=== PATIENT | female | born 1980 | race American Indian/Alaskan Native ===

== ENCOUNTER 2024-07-10 09:44 | Emergency (ER) | payer OTHER, SELFPAY ==
[2024-07-10 09:48] VITALS: BP 122/89
[2024-07-10 10:12] LABS: % Basophils 0.4 % (0-2); % Eosinophils 1.6 % (0-6); % Immature Granulocytes 0.1 % (0-0.5); % Lymphocytes 27.6 % (20.5-51.1); % Neutrophils 62.3 % (42.2-75.2); Absolute Eosinophils 0.1 10^3/uL (0-0.7); Absolute Lymphocytes 1.9 10^3/uL (1.2-3.4); Absolute Monocytes 0.6 10^3/uL (0.1-0.6); Absolute Neutrophils 4.3 10^3/uL (1.4-6.5); Hematocrit 39.3 % (37.0-47.0); Hemoglobin 13.4 g/dL (12.0-16.0); Mean Corp Hgb Conc. 34.1 g/dL (33.0-37.0); Mean Corpuscular Hgb 28.7 pg (27.0-31.0); Mean Corpuscular Volume 84.2 fL (81.0-99.0); Mean Platelet Volume 10.3 fL (7.4-10.4); Nucleated Red Blood Cells % 0 %; Platelet Count 249 10^3/uL (130-400); Red Blood Cell Count 4.67 10^6/uL (4.20-5.40); Red Cell Dist. Width 12.5 % (11.5-14.5); White Blood Cell Count 6.9 10^3/uL (4.8-10.8)
[2024-07-10 10:21] LABS: PT 13.2 Sec (11.4-14.6)
[2024-07-10 10:22] LABS: APTT 33.3 Sec (23.4-35.0)
[2024-07-10 10:33] LABS: ALT (SGPT) 20 U/L (0-35); AST (SGOT) 35 U/L (14-36); Albumin 4.6 g/dl (3.5-5.0); Alkaline Phosphatase 77 U/L (38-126); Blood Urea Nitrogen 11 mg/dl (7-17); Calcium 10.1 mg/dl (8.4-10.2); Carbon Dioxide 29 mmol/L (22-30); Chloride 101 mmol/L (98-107); Glucose 98 mg/dl (70-99); Potassium 4.4 mmol/L (3.5-5.1); Sodium 138 mmol/L (135-145); Total Bilirubin 0.8 mg/dl (0.2-1.3); Total Protein 7.4 g/dl (6.3-8.2); eGFR > 60.00
[2024-07-10 10:40] LABS: Troponin I < 0.012 ng/ml
[2024-07-10 11:05] VITALS: BP 123/73
[2024-07-10 11:07] VITALS: BMI 24.1
--- NOTE | 2024-07-10 11:41 | ED.GENMED ---
History of Present Illness
General
Chief Complaint: Chest Pain
Source: patient
Exam Limitations: none
Time Seen by Provider: 07/10/24 11:22
History of Present Illness
History of Present Illness:
See MDM
Past History
Past History
ED Past Medical History: None
ED Past Surgical History: None
Social History
Tobacco: Non-smoker
Alcohol: None
Phy Exam
Physical Exam
Physical Exam:
See MDM
Scores
Heart Score for Chest Pain Patients
STEMI patient?: No
History: Slightly or Non-Suspicious
ECG: Normal
Age: >45 - <65 years
Risk Factors: No Risk Factors
Troponin: </= Normal Limit
Heart Score for Chest Pain Patients: 1
Heart Score Risk: 2.5% MACE over next 6 weeks
PERC Rule Criteria
Age <50 years: Yes
HR <100 bpm: Yes
Room air oxygen sat >94%: Yes
History of DVT or PE: No
Recent trauma or surgery: No
Hemoptysis: No
Exogenous estrogen: No
Clinical signs suggestive of DVT: No
: No
Considered low risk for PE: Yes
PERC Score: 0
PE can be excluded by PERC: Yes
Course
Orders/Labs/Results
Orders:
Orders
07/10/24 09:46
Electrocardiogram (*1) Urgent
Reason for Study: Chest Pain
EKG- Treatment ONCE
Chest [CR Chest - 2 Views ] Urgent
Comment:
Reason For Exam: chest pain, SOB
07/10/24 09:55
Complete Blood Count/With Diff Urgent
Comprehensive Metabolic Panel Urgent
PT/INR [Prothrombin Time] Urgent
PTT Urgent
Troponin I Urgent
08/29/24 09:55
07/10/24 09:55
Vital Signs
Initial and Last Documented VS:
Initial Vital Signs
Temp Pulse Resp BP Pulse Ox
98.3 F 78 18 122/89 98
07/10/24 09:48 07/10/24 09:48 07/10/24 09:48 07/10/24 09:48 07/10/24 09:48
Last Documented Vital Signs
Temp Pulse Resp BP Pulse Ox
98.3 F 68 18 123/73 100
07/10/24 09:48 07/10/24 11:15 07/10/24 09:48 07/10/24 11:05 07/10/24 11:15
MDM/Problems Addressed
Differential Diagnosis Includes:
HPI and MDM Narrative:
44-year-old female presenting with intermittent chest discomfort. She developed mild shortness of breath and left-sided chest pain last night that lasted for 30 minutes. This occurred while she was picking up a suitcase. She had an issue like
this recently which she attributed to gas pain. Family at bedside believes it could be stress related. Patient denies exertional symptoms.
On exam, she is very well-appearing nontoxic. EKG nonischemic. Chest x-ray and blood work including troponin are all negative. Given how low risk she is, we discussed outpatient follow-up with PCP.
Physical exam
General: Well appearing and non-toxic
HEENT: protecting airway
Neck: appears supple
CV: No evidence of cyanosis. Regular rate and rhythm
Resp: No accessory muscle use. Lungs clear
Abd: Non-distended
Extremities: No deformities. No unilateral leg tenderness or edema
Neuro: alert
Psych: Normal affect
Skin: Intact
Problems Addressed including Acute and Chronic Conditions affecting care:
1. Chest pain
Acuity: acute
Prognosis: stable
Details: Given normal EKG, normal troponin and normal chest x-ray, doubt ACS. Discussed outpatient follow with PCP
Differential Diagnosis (but not limited to): Noncardiac chest pain, muscle strain, gastritis
Testing considered: D-dimer but she is PERC negative
Drug therapy (if applicable): OTC meds, please see d/c instruction regarding Rx drugs
Amount and/or Complexity of Data Reviewed
Clinical info obtained from: Patient
External data reviewed: N/A
Labs I independently reviewed (but not limited to): Troponin normal
Radiology: x-ray independently reviewed: Chest x-ray clear
Pulse Ox: not hypoxic
EKG independently reviewed: Sinus rhythm, normal axis, no STEMI
Head Charrer: N/A
Critical Care: N/A
Risk of Complication:
Social Determinants of health: Good social support
Discussed with other providers: N/A
Escalation of Care includes Admit/Obs: After being observed in the Emergency Department, pt stable for discharge.
Occasional wrong word or 'sound a like' substitutions may have occurred due to the inherent limitations of voice recognition software. Read the chart carefully and recognize, using context, where substitutions have occurred.
*Critical Care Note
Total Time (30-74mins, 75-104mins- exclusive of procedures): Not Applicable
ED Attending Note
-
Portions of this chart may have been created with voice recognition software.� Occasional wrong word or��sound alike� substitutions may have occurred due to the inherent limitations of voice recognition software.
Discharge Plan
Departure
Patient Disposition: Home (Routine Discharge)
Date of Disposition: 07/10/24
Time of Disposition: 11:41
Patient with high blood pressure during this ER visit?: No
Discharge Problem:
Chest pain
Activity Restrictions/Additional Instructions:
As we discussed, the workup for your chest pain is negative in the emergency department. Your EKG, chest x-ray and heart blood work are all within normal limits. Please discuss your symptoms with your primary care doctor and discuss obtaining
further testing such as echocardiogram and stress test.
Interventions
Interventions:
*Risk Screen - Suicide Last Done: 07/10/24 11:07
*General Assessment Last Done: 07/10/24 11:07
*Neglect/Abuse Screening Last Done: 07/10/24 11:07
ED- Fall Risk Assessment Last Done: 07/10/24 11:00
*ED COVID-19 Vaccine History Last Done: 07/10/24 11:07
ED- Cardiac Assessment Last Done: 07/10/24 11:00
Discharge Date and Time
Print Language: NAMIBIAN
== END 2024-07-10 11:45 | disposition home or self-care (01) ==
LOC: EMR 09:44
PROVIDERS: EMERGENCY PHYSICIAN Student in an Organized Health Care Education/Training Program
DX: R07.9 Chest pain, unspecified (principal)
CPT/HCPCS: 99284; 71046; 80053; 84484; 85025; 85610; 85730; 93005